=== PATIENT | female | born 1970 | race American Indian/Alaskan Native ===

== ENCOUNTER 2019-10-27 14:09 | Emergency (ER) | payer OTHER ==
[~2019-10-27] VITALS: Ht 160 cm; Wt 72.6 kg
[2019-10-27 14:19] VITALS: TEMP 97.9
[2019-10-27 14:44] LABS: PLATELET COUNT 223 K/uL (152-353)
[2019-10-27 14:52] LABS: POTASSIUM 3.9 mmol/L (3.6-5.2); SODIUM 142 mmol/L (136-145)
[2019-10-27 15:00] VITALS: BP 135/82
[2019-10-27 15:23] LABS: PARTIAL THROMBOPLASTIN TIME 25.5 SECONDS (24.5-33.6)
== END 2019-10-27 15:41 | disposition home or self-care (01) ==
LOC: ED 14:09
PROVIDERS: Hospitalist
DX: R07.89 Other chest pain (principal); R09.1 Pleurisy
CPT/HCPCS: 80053; 82550; 83880; 84484; 85027; 85379; 85610; 85730; 93005; 96375; 99284; J1885

== ENCOUNTER 2022-10-15 12:29 | Outpatient (CLI) | payer OTHER | END 2022-10-15 20:01 | disposition home or self-care (01) | LOC: MRI 12:29 | PROVIDERS: ATTEND Internal Medicine | DX: G44.85 Primary stabbing headache (principal) | CPT/HCPCS: 36415; 82565; 84520; A9576 ==